=== PATIENT | female | born 1980 | race Caucasian/White ===

== ENCOUNTER → 2021-11-03 08:02 | Outpatient (BNVA) | payer BC, OTHER, SELFPAY | PROVIDERS: Visit Provider Family Medicine | DX: Z13.6 Encounter for screening for cardiovascular disorders (principal); R68.89 Other general symptoms and signs | CPT/HCPCS: 80053; 80061; 84443; 85025 ==

== ENCOUNTER 2024-05-24 08:40 | Outpatient (CLI) | payer BC, SELFPAY ==
--- NOTE | 2024-05-24 08:48 | US_ITS ---
WS: [id number] US pelvic complete* [id number] HISTORY: R PELVIC PAIN COMPARISON: None available. Prior hysterectomy. There is no midline mass. No free fluid. Right ovary: 2.1 cm x 1.7 cm x 1.8 cm. Normal size and vascularity, no cystic or solid masses. Multip le small follicles. Left ovary: 4.2 cm x 2.5 cm x 2.3 cm. Normal size and vascularity, no cystic or solid masses. Multipl e small follicles. Very small amount of free fluid with increased low-level echoes in the LEFT adnexa. US/US pelvic complete* [id number] IMPRESSION: 1. Prior hysterectomy. No midline mass. 2. Both ovaries are identified and normal. 3. Small amount of complex free fluid LEFT adnexa. May be related to a rupture d ovarian cyst or follicle.
== END 2024-05-24 08:41 | disposition home or self-care (01) ==
LOC: RAD 08:41
PROVIDERS: PCP Family Medicine; Visit Provider Family Medicine
DX: R10.2 Pelvic and perineal pain (principal); Z90.710 Acquired absence of both cervix and uterus
CPT/HCPCS: 76856

== ENCOUNTER 2024-06-16 08:15 | Outpatient (CLI) | payer BC, SELFPAY ==
--- NOTE | 2024-06-16 08:19 | CT_ITS ---
WS: [id number] CT ABDOMEN AND PELVIS WITH AND WITHOUT CONTRAST HISTORY: R PELVIC PAIN TECHNIQUE: Unenhanced 5 mm axial imaging first performed through the abdomen. Post contrast imaging t hrough the abdomen and pelvis. Oral contrast has not been provided. Sagittal and coronal reformats a re submitted. All CT scans at [facility] use at least one of these dose optimization techniqu es: automated exposure control; mA and/or kV adjustment per patient size (includes targeted exams whe re dose is matched to clinical indication); or iterative reconstruction. CONTRAST: Omnipaque 350; 95 mL IV. DLP: 801.93 mGy.cm COMPARISON: None available. Lung bases are clear. Heart size is normal. Small hiatal hernia. Liver: There is elongated with the RIGHT else lobe. Mixed heterogeneous mass in the superior liver be neath the diaphragm measures 4.8 x 4.6 x 3.6 cm. On early arterial imaging there is peripheral nodula r enhancement similar to the blood pool. After 4 minutes there is no complete filling in of either ma ss. Enhancement is similar to the blood pool. There is an additional mass smaller in size in the RIGH T lobe of the liver just anterior to the kidney measuring 1.5 x 1.5 x 1.5 cm. Peripheral nodular enha ncement nearly completely fills in on the delayed imaging. The remaining liver is negative. Spleen and gallbladder are negative. Normal adrenal glands and pancreas. Normal aorta. There is very slight narrowing and stenosis involving the proximal celiac axis. Normal kidneys with no obstruction. Stomach is not distended. No small bowel obstruction. Mild constipation. Prior appendectomy. In the R IGHT pelvis there is a distal small bowel loop containing fecalization. This is often seen with a tamar gstanding mild chronic obstruction. No adenopathy or ascites. Small umbilical hernia. No abnormality is noted in the RIGHT lower quadrant. During the early imaging the RIGHT ureter is mil dly dilated but there is good excretion from the kidney and during the excretion from the RIGHT kidne y and the ureter is more normal size although the entire ureter is not included on the delayed imagin g. No osseous abnormalities. CT/CT abdomen pelvis wo/w [id number] IMPRESSION: 1. Hepatic masses x2. The largest mass in the superior RIGHT lobe of the liver beneath the diaphragm measures 4.8 x 4.6 x 3.6 cm. Enhancement pattern is sugg estive of hepatic cavernous hemangiomas. No prior studies for comparison identi fying either of these hepatic masses. To confirm these are probably benign cave rnous hemangiomas consider follow-up MRI of the liver with and without contrast with hemangioma protocol. 2. Mildly enlarged liver, Doe's lobe. 3. Prior appendectomy. 4. Prior hysterectomy. No pelvic masses. 5. Single loop of distal small bowel in the RIGHT pelvis contains fecalization . This is often seen with a longstanding mild obstruction. There is a very subt le area of mild wall thickening adjacent to the fecalization. Potentially this could be an inflammatory stricture. At this time there is no obstruction identi fied but if the patient continues with pain additional evaluation is warranted.
[2024-06-16] MEDS: iohexol 350 mg/mL 500 mL Btl (per mL) IV (08:25)
== END 2024-06-16 08:16 | disposition home or self-care (01) ==
LOC: RAD 08:15
PROVIDERS: PCP Family Medicine; Visit Provider Family Medicine
DX: R16.0 Hepatomegaly, not elsewhere classified (principal); R93.3 Abnormal findings on diagnostic imaging of other parts of digestive tract; R10.2 Pelvic and perineal pain; Z90.49 Acquired absence of other specified parts of digestive tract; Z90.710 Acquired absence of both cervix and uterus
CPT/HCPCS: 74178

== ENCOUNTER 2024-06-26 07:50 | Outpatient (CLI) | payer BC, SELFPAY | END 2024-06-26 07:51 | disposition home or self-care (01) | LOC: LAB 07:50 | PROVIDERS: PCP Family Medicine; Visit Provider Surgery | DX: R10.9 Unspecified abdominal pain (principal) | CPT/HCPCS: 82274; 83630; 83993 ==

== ENCOUNTER 2024-07-10 10:55 | Outpatient (CLI) | payer BC, SELFPAY ==
--- NOTE | 2024-07-10 11:00 | MR_ITS ---
WS: [id number] MRI ABDOMEN WITH AND WITHOUT CONTRAST. COMPARISON: CT 06/16/2024 Multiplanar, multisequence imaging is performed with and without contrast. MultiHance 14 mL. Liver is mildly elongated, likely Doe's lobe. The 2 hepatic masses which have been previously described by CT are identified. T2 very intense, slig htly lobulated mass towards the RIGHT diaphragmatic surface measures 4.9 x 3.5 x 3.2 cm. This is very low signal on the T1 sequences. There is peripheral early arterial puddling and enhancement with con tinued filling in on delayed imaging. There is not complete filling in at 5 minutes, this is probably due to a central scar secondary to the size of this mass. The smaller mass just anterior to the live r measures 1.8 x 1.6 x 1.2 cm. This nearly completely fills in during arterial enhancement. Both of t hese masses are consistent with hemangiomas although the larger is atypical. No additional mass. Ther e is no bile duct dilatation. Gallbladder is very slightly contracted. There is no bile duct dilatation. No significant hepatic jocelyn atosis. Liver is normal size. Normal adrenal glands. Normal pancreas. Normal kidneys. No ascites or a denopathy. MR/MR abdomen wo/w con* [id number] IMPRESSION: 1. Hepatic hemangiomas x2. The larger hemangioma measures 4.9 x 3.5 x 3.2 cm. Nonenhancement centrally consistent with a scar. 2. No evidence for metastatic disease. 3. No ascites or adenopathy.
[2024-07-10] MEDS: gadobenate dimeglumine 20 mL vial 14 ML IV (11:33)
== END 2024-07-10 10:56 | disposition home or self-care (01) ==
LOC: RAD 10:55
PROVIDERS: PCP Family Medicine; Visit Provider Surgery
DX: D18.03 Hemangioma of intra-abdominal structures (principal)
CPT/HCPCS: 74183

== ENCOUNTER 2024-07-13 10:29 | Day surgery (SDC) | payer BC, SELFPAY ==
[2024-07-13 10:43] VITALS: BP 99/66; PULSE 73; RESP 18; TEMP 36.5; O2SAT 99; BMI 21.2
--- NOTE | 2024-07-13 10:48 | P.HPUD_ITS ---
Surgery/Procedure H&P Update DATE OF PROCEDURE: July 13, 2024 DATE H&P PERFORMED: 06/20/24 H&P UPDATE INFORMATION: I have reviewed H&P completed within last 30 days, I have examined patient prior to procedure, No changes to prior documentation and H&P is in [facility] [place] on date indicated PLANNED PROCEDURE: Operation Date: 07/13/24 11:40 Proposed Procedures p Colonoscopy 50040, G0105, G89.29(Not Applicable) - Kalen Ma MD
--- NOTE | 2024-07-13 10:48 | W.PM.OPSUD ---
Surgery/Procedure H&P Update DATE OF PROCEDURE: July 13, 2024 DATE H&P PERFORMED: 06/20/24 H&P UPDATE INFORMATION: I have reviewed H&P completed within last 30 days, I have examined patient prior to procedure, No changes to prior documentation and H&P is in [facility] [place] EMR on date indicated PLANNED PROCEDURE: Operation Date: 07/13/24 11:40 Proposed Procedures p Colonoscopy 75236, G0105, G89.29(Not Applicable) - Kalen Ma MD
[2024-07-13] MEDS: sodium chloride 0.9% 1,000 ML 30 ML IV (10:55)
--- NOTE | 2024-07-13 10:58 | ANES.PREANE2 ---
Pre-Anesthetic Assessment Height/Weight: Height 1.73 m Weight 63.503 kg Temp Pulse Resp BP Pulse Ox O2 Del Method 97.7 F 73 18 99/66 99 Room Air 07/13/24 10:43 07/13/24 10:43 07/13/24 10:43 07/13/24 10:43 07/13/24 10:43 07/13/24 10:43 Preop Diagnosis: ABD Pain Operation Date: 07/13/24 11:40 Proposed Procedures p Colonoscopy 33427, G0105, G89.29(Not Applicable) - Kalen Ma MD Familial anesthetic complications: none Was Beta Marielena taken within 24 hours: N/A Was Clonidine taken within 24 hours: N/A Last intake: Intake Last Liquid Date 07/13/24 Last Liquid Time 08:00 Last Solid Date 07/11/24 Social No alcohol and No tobacco Exam alert, oriented x 3, clear to auscultation bilaterally and regular rate & rhythm Airway Submandibular: within normal limits Cervical ROM: within normal limits Dentition: full History/ROS No significant history except as noted and No significant complaints Pulmonary None reported CV/HEM None reported None reported Hepatic None reported GI None reported Metabolic None reported Musc/skel None reported Neuropsych None reported Anesthetic Plan ASA status: 1 Anesthesia: MAC Risk of > 500 ml blood loss (7ml/kg in children): No Medications/Allergies Home Medications Medication Instructions Recorded Confirmed Last Taken Type ibuprofen 200 mg tablet 200 mg PO Q6H PRN Pain 10/31/21 07/11/24 07/12/24 History Allergies Allergy/AdvReac Type Severity Reaction Status Date / Time No Known Allergies Allergy Unverified 07/13/24 10:46 Current Medications Generic Name Dose Route Start Last Admin Trade Name Freq PRN Reason Stop Dose Admin Sodium Chloride 1,000 mls @ 30 mls/hr 07/13/24 10:30 07/13/24 10:55 Sodium Chloride 0.9% IV 07/14/24 10:29 30 mls/hr .Q24H ALBERTO Administration PFSH Anesthesia Medical History Chronic migraine without aura Surgical History S/P partial hysterectomy No history of cancer Status post appendectomy Family History Grandmother Diabetes Cancer Fibromyalgia Mother Cancer, Onset Age: 30 Thyroid Diabetes Fibromyalgia Bleeding disorder Social History (Updated 06/20/24 @ 10:47 by TIA Lacy) Smoking and tobacco/nicotine status: unknown if used tobacco/nicotine Second hand smoke exposure: Yes Alcohol intake: current Alcohol intake frequency: holidays/special occasions only Alcohol type: hard liquor Substance/Drug Use: never Data Anesthesia Cardiac Studies: No Data to Display
[2024-07-13 11:40] VITALS: BP 95/59; PULSE 83; RESP 83; TEMP 36.7; O2SAT 100
[2024-07-13 11:55] VITALS: BP 109/67; PULSE 78; RESP 18; O2SAT 99
--- NOTE | 2024-07-13 12:15 | ANE.PACU2 ---
Inpatient post-anesthesia follow up: Airway intact: Yes Vital signs: Temperature 98.1 F Pulse Rate 78 Respiratory Rate 18 Blood Pressure 109/67 Pulse Oximetry 99 Oxygen Delivery Me thod Room Air Oxygen Flow Rate Fraction of Inspir ed Oxygen Hydration adequate: Yes Nausea and vomiting: No Pain level: 1 Mental status: Baseline
== END 2024-07-13 12:15 | disposition home or self-care (01) ==
PROVIDERS: PCP Family Medicine; Visit Provider Surgery
PROC: 0DJD8ZZ Inspection of Lower Intestinal Tract, Via Natural or Artificial Opening Endoscopic (ICD-10-PCS; CPT 45378; principal; 2024-07-13 11:40)
DX: K57.30 Diverticulosis of large intestine without perforation or abscess without bleeding (principal); G89.29 Other chronic pain; R10.31 Right lower quadrant pain; R10.2 Pelvic and perineal pain; R19.7 Diarrhea, unspecified; Q42.8 Congenital absence, atresia and stenosis of other parts of large intestine; Z90.49 Acquired absence of other specified parts of digestive tract; F17.210 Nicotine dependence, cigarettes, uncomplicated
CPT/HCPCS: 45378; J2704; J7030

== ENCOUNTER 2024-11-05 07:45 | Emergency (ER) | payer BC, SELFPAY ==
[2024-11-05 07:59] VITALS: BP 120/71; PULSE 87; RESP 18; TEMP 36.7; O2SAT 97; BMI 21.2
--- NOTE | 2024-11-05 08:12 | W.ED.EYEPROB ---
HPI - Eye Problem General: Chief complaint: Eye Problems Stated complaint: right eye swelling Time Seen by Provider: 11/05/24 07:59 History of Present Illness: 44-year-old female presents with swelling around her right eye that has been there for about 2 days. She does have allergies to cats but has not been around cats however her grandkids were around who have cats and is not sure if that may have triggered it. She has no issues with pain full range of motion with her right eye, no actual conjunctival or complaints to the eye itself. Patient taken some Benadryl that seemed to help. Associated symptoms: Denies nausea or vomiting Related Data Home Medications ?Medication ?Instructions ?Recorded ?Confirmed ibuprofen 200 mg tablet 200 mg PO Q6H PRN Pain 10/31/21 08/02/24 Allergies Allergy/AdvReac Type Severity Reaction Status Date / Time No Known Allergies Allergy Unverified 08/02/24 14:59 Review of Systems Eyes: Denies: change in vision, photophobia, eye discharge or eye redness Resp: Denies: dyspnea or productive cough GI: Denies: abdominal pain, nausea or vomiting : Denies: flank pain or difficulty voiding PFSH ED PFSH: Medical History Chronic migraine without aura Surgical History S/P partial hysterectomy No history of cancer Status post appendectomy Family History Grandmother Diabetes Cancer Fibromyalgia Mother Cancer, Onset Age: 30 Thyroid Diabetes Fibromyalgia Bleeding disorder Social History Smoking and tobacco/nicotine status: unknown if used tobacco/nicotine Second hand smoke exposure: Yes Alcohol intake: current Alcohol intake frequency: holidays/special occasions only Alcohol type: hard liquor Substance/Drug Use: never Physical Exam Const: COMMON NORMALS: no acute distress, patient oriented x3 and alert Eye: COMMON NORMALS: conjunctivae normal PERIORBITAL: periorbital findings abnormal positive right periorbital swelling; no tenderness, no erythema and no ecchymosis CONJUNCTIVA: Yes conjunctivae normal SCLERA: sclerae normal Resp: EFFORT & INSPECTION: Yes able to speak in complete sentences Cardio: COMMON NORMALS: regular rate and regular rhythm RATE: regular rate RHYTHM: regular rhythm Neuro: COMMON NORMALS: patient oriented x3 SENSORIUM/ORIENTATION: Yes alert Course Vital Signs: Vital signs: Vital Signs Temperature 98.1 F 11/05/24 07:59 Pulse Rate 87 11/05/24 07:59 Respiratory Rate 18 11/05/24 07:59 Blood Pressure 120/71 11/05/24 07:59 Pulse Oximetry 97 11/05/24 07:59 Oxygen Delivery Me thod Room Air 11/05/24 07:59 MDM - Eye Problem Medical Decision Making Patient's symptoms are consistent with likely an allergic periorbital reaction. There is no painful range of motion or signs/symptoms that are consistent with periorbital infection or conjunctival infection. Discussed with her the use of antihistamines and recommended she start these. She is stable and discharged home No radiology studies performed this visit Discharge Plan Discharge Patient Disposition: Home Clinical Impression: Periorbital edema of right eye, Allergy Condition: Stable Prescriptions: No Action ibuprofen 200 mg tablet 200 mg PO Q6H PRN (Reason: Pain) Discharge Orders: Discharge ED (Routine); Ordered 11/05/24 Ordered By: Tony Escobar Referrals: Clayton Cody MD [Primary Care Provider] - Discharge Diet: Usual diet Patient Instructions: Allergies (ED), Opioid Safety, Pain Management, Periorbital Edema Activity Restrictions/Additional Instructions: Recommend you start an antihistamine such as Edel, Zyrtec or Claritin. You may also use an antihistamine eyedrop. Please follow-up with your primary care provider or return to the ER if symptoms significantly worsen if you develop any increased redness, painful movement of the eyeball or any other concerns. Print Language: Vietnamese Coding Level of Care Code ED Organizational Research Consultant for Gaurang Walters
[2024-11-05] MEDS: dexamethasone 4 mg Tablet 10 MG PO (08:28)
[2024-11-05 08:32] VITALS: BP 103/67; PULSE 72; O2SAT 100
== END 2024-11-05 08:33 | disposition home or self-care (01) ==
PROVIDERS: Emergency Provider Student in an Organized Health Care Education/Training Program; PCP Family Medicine
DX: H02.843 Edema of right eye, unspecified eyelid (principal); T78.40XA Allergy, unspecified, initial encounter; X58.XXXA Exposure to other specified factors, initial encounter
CPT/HCPCS: 99283; J8540